=== PATIENT | female | born 2000 | race Caucasian/White ===

== ENCOUNTER 2020-11-17 22:42 | Outpatient (CLI) | payer OTHER ==
[~2020-11-17 22:42] MED LIST: COLACE 100MG C100 MG PO; IBUPROFEN600 MG PO; LABETALOL HCL100 MG PO; LABETALOL HCL200 MG PO; LORTAB 5-325 M1 EACH PO; PRENATAL VITAM1 EAC8 PO
== END 2020-11-18 02:07 | disposition home or self-care (01) ==
LOC: GENOP 22:42
DX: O36.8130 Decreased fetal movements, third trimester, not applicable or unspecified (principal); O42.913 Preterm premature rupture of membranes, unspecified as to length of time between rupture and onset of labor, third trimester; Z3A.33 33 weeks gestation of pregnancy
CPT/HCPCS: 59025; 81001; 83518

== ENCOUNTER 2020-12-26 04:10 | Inpatient (IN) | payer OTHER ==
[~2020-12-26] VITALS: Ht 162.6 cm; Wt 93.0 kg
[2020-12-26 04:52] LABS: HEMOGLOBIN 9.9 gm/dl (12.3-15.3); RED BLOOD COUNT 4.27 M/UL (4.00-5.10); WHITE BLOOD COUNT 16.3 K/UL (4.5-11.0)
[2020-12-26] MEDS ORDERED: PEPCID20 MG PO (06:14)
[2020-12-26] MEDS ORDERED: LABETALOL HCL100 MG PO (06:14)
[2020-12-26] MEDS ORDERED: VALTREX500 MG PO (06:15)
[2020-12-26] MEDS ORDERED: DOCUSATE SODIU100 MG PO (14:31)
[2020-12-26] MEDS ORDERED: IBUPROFEN600 MG PO (14:31)
== END 2020-12-28 14:03 | disposition home or self-care (01) | DRG 806 ==
LOC: OB 04:10
PROVIDERS: Obstetrics & Gynecology; ADMIT Obstetrics & Gynecology
PROC: 10E0XZZ Delivery of Products of Conception, External Approach (ICD-10-PCS; principal; 2020-12-26)
PROC: 3E033VJ Introduction of Other Hormone into Peripheral Vein, Percutaneous Approach (ICD-10-PCS; 2020-12-26)
PROC: 10907ZC Drainage of Amniotic Fluid, Therapeutic from Products of Conception, Via Natural or Artificial Opening (ICD-10-PCS; 2020-12-26)
PROC: 4A1HXCZ Monitoring of Products of Conception, Cardiac Rate, External Approach (ICD-10-PCS; 2020-12-26)
DX: O13.4 Gestational [pregnancy-induced] hypertension without significant proteinuria, complicating childbirth (principal); O98.52 Other viral diseases complicating childbirth; Z37.0 Single live birth; Z3A.38 38 weeks gestation of pregnancy; A60.00 Herpesviral infection of urogenital system, unspecified; Z20.822 Contact with and (suspected) exposure to COVID-19
CPT/HCPCS: 36415; 51702; 80307; 81001; 85014; 85018; 85025; 90715; J0595; J2795; J7120; U0002